=== PATIENT | male | born 1960 | race Caucasian/White ===

== ENCOUNTER 2018-09-29 09:34 | Day surgery (SDC) | payer OTHER ==
[~2018-09-29 09:34] MED LIST: LIDOCAINE HCL 1% MPF 30 SOL ONE; PROPOFOL 500 MG/50 ML EMU IV ONE
[2018-09-29 11:34] VITALS: BP 144/81; PULSE 58; RESP 20; TEMP 98; O2SAT 98
== END 2018-09-29 11:45 | disposition home or self-care (01) | DRG 951 ==
LOC: SURG 09:34
PROVIDERS: ATTEND Surgery
DX: Z12.11 Encounter for screening for malignant neoplasm of colon (principal); K57.32 Diverticulitis of large intestine without perforation or abscess without bleeding; K63.5 Polyp of colon
CPT/HCPCS: 99001; J2001; J2704